=== PATIENT | female | born 1945 | race Caucasian/White ===

== ENCOUNTER 2021-03-24 16:40 | Inpatient (IN) | payer OTHER ==
[~2021-03-24] VITALS: Ht 160 cm; Wt 59.0 kg
[2021-03-24 16:43] VITALS: BP 131/89
[2021-03-24] MEDS ORDERED: ULTRAM50 MG PO (16:51)
[2021-03-24] MEDS ORDERED: CITALOPRAM (16:51)
[2021-03-24 17:21] LABS: ABSOLUTE NEUTROPHILS 9.2 thou/uL (1.4-8.2); BASOPHILS 0.2 % (0.0-2.0); EOSINOPHILS 0.1 % (0.0-3.0); HEMATOCRIT 41.1 % (37.0-47.0); HEMOGLOBIN 13.2 gm/dL (12.0-15.0); LYMPHOCYTES 9.2 % (24.0-44.0); MCH 31.9 pg (26.0-34.0); MCHC 32.1 g/dL (28.0-37.0); MCV 99.2 fL (80.0-100.0); MONOCYTES 7.9 % (1.0-8.0); PLATELET COUNT 391 thou/uL (150-400); POLYS 82.6 % (36.0-66.0); RBC 4.14 mil/uL (4.20-5.00); RDW 14.1 % (10.5-14.5); WBC 11.2 thou/uL (4.0-11.0)
[2021-03-24 17:33] LABS: ALBUMIN 2.9 g/dL (3.4-5.0); CREATININE 1.1 mg/dL (0.6-1.0); TOTAL BILIRUBIN 0.5 mg/dL (0.2-1.0); TOTAL PROTEIN 7.3 g/dL (6.4-8.2)
[2021-03-24 17:37] LABS: CALCIUM 12.4 mg/dL (8.5-10.1)
[2021-03-24 19:53] LABS: URINE BILIRUBIN NEGATIVE (Negative); URINE BLOOD 2+ (Negative); URINE CLARITY SL CLOUDY; URINE COLOR YELLOW; URINE GLUCOSE-RANDOM* NEGATIVE (Negative); URINE KETONES NEGATIVE (Negative); URINE PROTEIN (DIPSTICK) 1+ (Negative); URINE SPECIFIC GRAVITY >= 1.030 (1.005-1.035); URINE UROBILINOGEN 0.2 E.U./dl (0.2-1.0)
[2021-03-24 19:56] LABS: URINE LEUKOCYTES-REFLEX 2+ (Negative); URINE NITRITE-REFLEX POSITIVE (Negative)
[2021-03-24 20:13] LABS: BACTERIA-REFLEX >30 Many /HPF (None Seen); CASTS None Seen /LPF (None Seen); SQUAMOUS 4-10 Moderate /LPF (0-3); URINE WBC-REFLEX >25 Many /HPF (0-5)
[2021-03-24 20:14] LABS: CRYSTALS None Seen /LPF (None Seen); URINE RBC 1-2 Rare /HPF (NONE SEEN)
[2021-03-24 23:21] VITALS: BP 135/85
[2021-03-24 23:28] VITALS: BP 135/85
[2021-03-24 23:58] VITALS: BP 166/95
--- NOTE | 2021-03-25 02:34 | NUR ---
PT ARRIVED ON UNIT FROM ED AT APPROX 2345. ADMITTED FROM HOME--LIVES WITH SON AND [place]. ADMITTED WITH [id number]-[id number]-DTSPOREDHL DISEASE AND AMS. INCONTINENT BOWEL AND BLADDER. ORIENT TO SELF ONLY-VERY CONFUSED. DENIES PAIN. CURRENTLY RESTING COMFORTABLY. FREQUENT OBSERVATION.
[2021-03-25 05:22] LABS: HEMOGLOBIN 11.7 gm/dL (12.0-15.0); MCH 32.1 pg (26.0-34.0); MCHC 32.6 g/dL (28.0-37.0); MCV 98.5 fL (80.0-100.0); RBC 3.65 mil/uL (4.20-5.00); WBC 8.4 thou/uL (4.0-11.0)
[2021-03-25 05:39] LABS: CALCIUM 11.8 mg/dL (8.5-10.1); CREATININE 0.8 mg/dL (0.6-1.0); PHOSPHORUS 3.9 mg/dL (2.5-4.9); POTASSIUM 3.6 mmol/L (3.5-5.1)
--- NOTE | 2021-03-25 07:39 | NUR ---
Pt refusing VS this AM. Pt pushed staff while trying to attempt to get Vs this AM. Staff attempted to redirect pt and was unsuccessful.
--- NOTE | 2021-03-25 07:40 | EKG ---
[address] [address] ELECTROCARDIOGRAM REPORT Name: MADIHA ROMO Room #: 445- ADM IN .R.#: [id number] Admission: 03/24/21 Attend Phys: Foreign Lugo MD Discharge: Date of : 41 Report #: [id number] [facility] ED Test Date: 2021-03-24 Test Time: 16:52:25 Pat Name: MADIHA ROMO Department: Room: [facility] Gender: F Business Area Manager: YELENA : 1945 Requested By: Donna Ray Order Number: [id number] MD: Topher Sotelo Measurements Intervals [place] Rate: 126 P: 82 KS: 156 QRS: 15 QRSD: 76 T: 42 QT: 315 QTc: 457 Interpretive Statements Sinus tachycardia No previous ECG available for comparison Electronically Signed On 03-25-2021 7:40:00 [employer] by Topher Sotelo [email or web address] <ELECTRONICALLY SIGNED> By: Topher Sotelo MD, [facility] 03/25/21 0740 [id number] Topher Sotelo MD, FACC /EPI
--- NOTE | 2021-03-25 08:30 | NUR ---
75 y/o female brought to the ED with her son present who reports AMS and aggression within the past 3 weeks, however has been significantly worsening over the past 4 days. She had raised her hand to slap her [id number]-ce-xpd which is very out of character for the pt. Pt's son states pt was recently evaluated for hospice approximately 2 weeks ago and was declined. Pt was offered home health services, however a parts representative has not evaluated yet per Pt's son. pt may be accepted into hospice with their report. Chart review. CM visited with patient and son marta at bedside, # [phone]. Mary is a & o to self and family. Pleasantly confused and forgetful. Son went to bring her home to live with him and his family. She was living in [place] alone with another son who used to live across the street from her. She lived in [place] for 20 + years. She had some declines over past 4 weeks. She needs help with dressing, unable to walk. He has to lift her and put her in the wheelchair, she has hospital bed. Poor appetite. [facility] or home health is who we will use per peter lozano.
--- NOTE | 2021-03-25 09:16 | NUR ---
Pt son at bedside. Pt spit out morning meds this AM.
[2021-03-25 09:43] LABS: CALCIUM 11.8 mg/dL (8.5-10.1); CREATININE 0.9 mg/dL (0.6-1.0); PHOSPHORUS 4.2 mg/dL (2.5-4.9)
--- NOTE | 2021-03-25 10:48 | NUR ---
WOUND CONSULT; THE PATIENTS RIGHT BUTTOCKS WAS ASSESSED TODAY. THERE IS A SMALL WOUND OF 0.2 X 0.2 X 0.1 AT THIS TIME. NO S/S OF INFECTION. THE PATIENT IS MILDLY CONFUSED BUT CAN FOLLOW COMMANDS. THE PATIENTS PAD WAS SATURATED WITH URINE WHICH I CHANGED TO A CLEAN PAD WELL WASHED HER BOTTOM WITH WARM SOAPY WATER AND DRIED. RECOMMENDATIONS; -Q2H TURNING AT A MINIMUM. -FLOAT HEELS AT ALL TIMES. -APPLY ZGUARD TO WOUND, BARRIER CREAM TO ALL LATHA PROMINENCES. DISCUSSED WITH DARLING
[2021-03-25 17:03] VITALS: BP 166/99
--- NOTE | 2021-03-25 18:33 | NUR ---
pT a & o X TO SELF. PT VS STABLE. PT RECEIVED NEW IV PLACED BY IV TEAM. PT RECIEVED MEDICATIONS ORDERED. PT HAS LARGE BM THIS SHIFT. PT SON WAs AT BEDSIDE THIS SHIFT. PT CURRENTLTY HAS IV FLUIDS.
[2021-03-25 19:47] VITALS: BP 155/92
--- NOTE | 2021-03-26 02:33 | NUR ---
ASSUMED PT CARE AT 1900.PT ALERT TO SELF/PLEASANTLY CONFUSED AND FORGETFUL.PT FED AT HS ATE A LITTLE.PT REF HER SENNA AT HS PT STATED"YOU ARE TRYING TO GET RID OF ME" THEN THREW THE MEDICWTIO AWAY.PT CONT ON IVF AND IV ABX ORDERED.FREQ MONITORING MAINTAINED.Z GUARD TO HER BUTTOCKS.PT REPOSITIONED WHILE IN BED.CALL LIGHT WITHIN REACH.
[2021-03-26 04:06] LABS: IgA 97 mg/dL (64-422); IgG 543 mg/dL (586-1602); IgM 57 mg/dL (26-217)
[2021-03-26 05:07] LABS: CALCIUM IONIZED* 6.7 mg/dL (4.5-5.6)
[2021-03-26 08:48] VITALS: BP 176/93; BP 194/108
--- NOTE | 2021-03-26 09:27 | NUR ---
RD consult intially received. Chart reviewed, metastatic disease and family wishing to pursue home with hospice. Defer further nutrition assessment at this time
[2021-03-26] MEDS ORDERED: SEROQUEL 25 MG25 M1 PO (13:41)
[2021-03-26] MEDS ORDERED: AUGMENTIN 875-1 EACH PO (13:42)
--- NOTE | 2021-03-26 13:42 | NUR ---
Possible dc to home with son with hospice services. Referral/clinical updated faxed and called to [facility]. Their liason will f/u with pt's son Mohan to coordinate plans to take her home. [facility] form on the chart as she will need ambulance transport home. DME is in place if all in agreement for dc today. Awaiting call back from [facility] to finalize these arrangements.
[2021-03-26 13:44] VITALS: BP 194/108
[2021-03-26 13:56] VITALS: BP 194/108
--- NOTE | 2021-03-26 14:24 | NUR ---
ASSUMED CARE OF AT 0700 THIS MORNING. PT IS ALERT TO SELF AND CONFUSED. PT WAS ADMITTED FOR SEPSIS, HYPOCALCEMIA. HX OF DEMENTIA. ASSESSMENTS NOTED IN CHART AND OTHERWISE UNREMARKABLE. FALL PRECAUTIONS ARE IN PLACE. CALL LIGHT AND OTHER NEEDS ARE IN REACH. MEDS AND RX GIVEN NEEDED AND SCHEDULED. PT IS BEING DISCHARGED TO HOME HOSPICE. TRANSPORT IS TO BE HERE [id number]. FAMILY WILL MEET WITH HOSPICE ON HER ARRIVAL. WILL MONITOR AND NOTE ANY CHANGES.
[2021-03-26 14:41] VITALS: BP 194/108
[2021-03-27 08:08] LABS: KAPPA FREE LIGHT CHAINS 3652.2 mg/L (3.3-19.4); KAPPA/LAMBDA RATIO 598.72 (0.26-1.65); LAMBDA FREE LIGHT CHAINS 6.1 mg/L (5.7-26.3)
[2021-03-27 21:06] LABS: GLOBULIN TOTAL 3.1 g/dL (2.2-3.9); M-SPIKE Not Observed g/dL (Not Observed)
== END 2021-03-26 18:56 | disposition hospice, home (50) | DRG 871 ==
LOC: ER 16:40 → 4S 22:48 → EROBS 22:48 → 4S 23:31
PROVIDERS: Emergency Medicine; Nurse Practitioner Family; Physician Assistant; ADMIT Hospitalist; ATTEND Hospitalist
DX: A41.9 Sepsis, unspecified organism (principal); G92.8 Other toxic encephalopathy; N39.0 Urinary tract infection, site not specified; F03.91 Unspecified dementia, unspecified severity, with behavioral disturbance; C79.9 Secondary malignant neoplasm of unspecified site; K56.41 Fecal impaction; E83.52 Hypercalcemia; Z20.822 Contact with and (suspected) exposure to COVID-19; M89.9 Disorder of bone, unspecified; R53.81 Other malaise; Z66 Do not resuscitate; Z81.8 Family history of other mental and behavioral disorders; Z79.899 Other long term (current) drug therapy; Z28.21 Immunization not carried out because of patient refusal
CPT/HCPCS: 10100; 10195